=== PATIENT | female | born 2000 | race African-American/Black ===

== ENCOUNTER 2024-07-31 21:12 | Emergency (ER) | payer OTHER ==
[~2024-07-31] VITALS: Ht 162.6 cm; Wt 72.4 kg
[2024-07-31] MEDS: IBUPROFEN 600MG TAB PO ONE (23:54)
[2024-08-01] MEDS ORDERED: HOME MED LIST COMPLETE! XX SCH (00:40)
[2024-08-01] MEDS: BOOSTRIX VACCINE (TETANUS/DIPHTH/ACEL. PERTUSSIS) 0.5ML SYR IM.IMMUN ONE (01:05)
[2024-08-01] MEDS: NEOSPORIN OINT 0.9 GM PKT TOP ONE (01:44)
[2024-08-01 01:51] VITALS: BP 123/68; TEMP 98; O2SAT 100
== END 2024-08-01 01:52 | disposition home or self-care (01) ==
LOC: EDBD 21:12 → M ED 21:12
DX: S61.217A Laceration without foreign body of left little finger without damage to nail, initial encounter (principal); Y92.019 Unspecified place in single-family (private) house as the place of occurrence of the external cause; Y93.9 Activity, unspecified; Y99.9 Unspecified external cause status